=== PATIENT | female | born 1990 | race Hispanic/Latino ===

== ENCOUNTER 2019-09-27 11:24 | Inpatient (IN) | payer BC ==
[2019-10-02] MEDS ORDERED: Bupivacaine 0.25% HCL 30 ML VIAL ONE (09:05)
[2019-10-02] MEDS ORDERED: Bupivacaine PF 0.5% 30 ML VIAL ONE (09:05)
[2019-10-02] MEDS ORDERED: HYDROcodone/Acetaminophen 5/325 mg Tablet PO PRN ×2 (20:09)
[2019-10-02] MEDS ORDERED: Ondansetron PF 4 MG/2 ML Vial IVP PRN (20:09)
[2019-10-02] MEDS ORDERED: Ibuprofen 800 MG TAB PO PRN (20:09)
[2019-10-02] MEDS ORDERED: NS / Oxytocin 40 units/1000ml 1,000 ML IV PRN (20:09)
[2019-10-02] MEDS ORDERED: Butorphanol Tartrate 1 MG/ML VIAL SLOW IVP PRN (20:09)
[2019-10-02] MEDS ORDERED: Lidocaine 1% (PF) 30 ML VIAL SC PRN (20:09)
[2019-10-02] MEDS ORDERED: Promethazine HCl 25 MG/ML VIAL IM PRN (20:09)
[2019-10-02] MEDS ORDERED: hydrALAZINE 20 MG/ML VIAL SLOW IVP PRN (20:09)
[2019-10-02] MEDS ORDERED: NS w/ Oxytocin 10 units 500 ML IV SCH ×2 (20:15)
[2019-10-02 21:19] VITALS: BMI 33.8
[2019-10-02 21:44] LABS: Mean Corpuscular HGB CONC 35.1 g/dL (32.0-36.0); Mean Corpuscular Hemoglobin 31.5 pg (27.0-31.0); Mean Corpuscular Volume 89.7 fL (78.0-98.0); Mean Platelet Volume 9.7 fL (7.4-10.4); Platelet Count 155 thou/uL (130-400); RBC Distribution Width 12.3 % (11.5-14.5); Red Blood Cell (RBC) Count 4.13 mill/uL (4.20-5.40); White Blood Cell (WBC) Count 8.4 thou/uL (4.8-10.8)
[2019-10-02] MEDS: Lactated Ringer's 1,000 ML IV SCH (21:45)
[2019-10-02] MEDS: Misoprostol 100 MCG TAB VAG SCH (21:59)
[2019-10-02 22:24] LABS: HBSAg Index 0.29 S/CO (0-0.99); Hep B Surf Ag Non-Reactive S/CO (NonReactive)
[2019-10-02 22:31] LABS: Syphilis Antibody Nonreactive (Nonreactive); Syphilis Antibody Index 0.06 S/CO (<1.00 Non-Reactive)
[2019-10-03] MEDS: Lactated Ringer's 1,000 ML IV SCH ×2 (04:00→08:03)
[2019-10-03] MEDS: Misoprostol 100 MCG TAB VAG SCH ×3 (06:04→18:24)
[2019-10-03] MEDS ORDERED: Fentanyl 4 mcg/Bup 0.1% Cadd 100 ML ONE (09:48)
[2019-10-03] MEDS ORDERED: Ondansetron PF 4 MG/2 ML Vial IVP PRN ×3 (10:45→19:55)
[2019-10-03] MEDS ORDERED: Promethazine HCl 25 MG/ML VIAL IM PRN ×2 (10:45→18:11)
[2019-10-03] MEDS ORDERED: Acetaminophen 325 MG TAB PO PRN ×2 (10:45→19:55)
[2019-10-03] MEDS ORDERED: Naloxone HCl 0.4 mg/ml Vial IVP PRN ×4 (10:45→18:11)
[2019-10-03] MEDS ORDERED: Communication Order-Pharmacy FS SCH ×2 (10:45→18:15)
[2019-10-03] MEDS ORDERED: Lactated Ringer's 500 ML IV PRN (10:45)
[2019-10-03] MEDS ORDERED: diphenhydrAMINE 50 MG/ML VIAL IVP PRN ×2 (10:45→18:11)
[2019-10-03] MEDS ORDERED: EPHEDRINE 25 MG/5 ML SYRINGE SLOW IVP PRN (10:45)
[2019-10-03] MEDS ORDERED: Fentanyl 4 mcg/Bupivacaine 0.1% Cassette 100 ML EPIDURAL SCH (10:45)
[2019-10-03] MEDS ORDERED: MORPHINE 5 MG/10 ML PF VIAL ONE (16:36)
[2019-10-03] MEDS ORDERED: Fentanyl 100 MCG/2 ML VIAL ONE (16:36)
[2019-10-03] MEDS ORDERED: EPHEDRINE 25 MG/5 ML SYRINGE ONE (16:37)
[2019-10-03] MEDS ORDERED: PHENYLEPHRINE-NS 100 MCG/ML 10 ML SYRINGE ONE (16:37)
[2019-10-03] MEDS ORDERED: Dexamethasone 4 mg/ml Vial ONE (16:37)
[2019-10-03] MEDS ORDERED: Ketorolac Tromethamine 30 MG/ML VIAL ONE (16:37)
[2019-10-03] MEDS ORDERED: Oxytocin 10 UNITS/ML VIAL ONE ×2 (16:37→17:25)
[2019-10-03] MEDS ORDERED: Dextrose 5%-Lactated Ringers 1,000 ML IV SCH (16:45)
[2019-10-03] MEDS ORDERED: Azithromycin 500 MG VIAL ONE (16:46)
[2019-10-03] MEDS ORDERED: CEFAZOLIN 1 GM VIAL ONE (16:48)
[2019-10-03] MEDS ORDERED: Ondansetron PF 4 MG/2 ML Vial ONE (16:50)
--- NOTE | 2019-10-03 16:51 | PDOC.LDPN ---
Labor & Delivery Progress Note - Subjective Subjective: no concerns - Objective Vital signs reviewed and normal: yes General: resting - Assessment (1) Non-reassuring heart rate or rhythm affecting mother Code(s): O36.8390 - MATERN CARE FOR ABNLT FETL HRT RATE OR RHYM, UNSP TRI, UNSP Current Visit: Yes Status: Acute Plan: other -: Pitocin off x 2 for recurrent late decelerations and minimal variability, remote from delivery. Discussed indication for CS.
[2019-10-03] MEDS ORDERED: CEFAZOLIN 2 GM in Premix Bag 1 BAG IVPB SCH (17:00)
[2019-10-03] MEDS ORDERED: Azithromycin 500 MG in Sodium Chloride 0.9% 250 ML 250 ML IVPB SCH (17:00)
--- NOTE | 2019-10-03 17:25 | PDOC.OPDEL ---
OB Operative/Delivery Note Delivery Dr/Surgeon: kaitlin Assist: atul Pre-Delivery Diagnosis: medically indicated induction (prolonged preg) Procedure/Post Delivery Dx: primary low transverse CS (for NRFHT @ 4cm) Weeks gestation: 40 Anesthesia: epidural - Findings A Sex: female - Additional Findings/Plan Placenta delivered: manual removal findings: low transverse hysterotomy without extension, normal uterus, normal tubes, normal ovaries Estimated blood loss: 600ml Post delivery plan: routine recovery
[2019-10-03] MEDS ORDERED: Naloxone HCl 0.4 mg/ml Vial IV PRN (18:11)
[2019-10-03] MEDS ORDERED: L&D-Morphine 4 MG/ML VIAL SLOW IVP PRN (18:11)
[2019-10-03] MEDS ORDERED: Ondansetron HCl/PF 4 MG/2 ML Vial IVP PRN (18:11)
[2019-10-03] MEDS ORDERED: Promethazine HCl 25 MG SUPP PR PRN (18:11)
[2019-10-03] MEDS ORDERED: HYDROmorphone 2 MG/ML VIAL SLOW IVP PRN (18:11)
[2019-10-03] MEDS ORDERED: Meperidine HCl/PF 25 MG/ML VIAL SLOW IVP PRN (18:11)
[2019-10-03] MEDS ORDERED: Ketorolac Tromethamine 30 MG/ML VIAL IVP PRN (18:11)
[2019-10-03] MEDS ORDERED: Ketorolac Tromethamine 30 MG/ML VIAL IVP SCH (18:15)
[2019-10-03] MEDS ORDERED: Bisacodyl 10 MG SUPP PR PRN (19:55)
[2019-10-03] MEDS ORDERED: Lanolin Ointment 7 GM TUBE TOP PRN (19:55)
[2019-10-03] MEDS ORDERED: diphenhydrAMINE 25 MG CAP PO PRN (19:55)
[2019-10-03] MEDS ORDERED: hydrALAZINE 20 MG/ML VIAL SLOW IVP PRN (19:55)
--- NOTE | 2019-10-03 20:22 | OP ---
DATE OF PROCEDURE: 10/03/2019 PREOPERATIVE DIAGNOSES: 1. Induction of labor at four weeks for prolonged . 2. Nonreassuring heart tones remote from delivery. PROCEDURE PERFORMED: Primary low transverse section. [employer] DRIVER: Shyanne Watts MD COMPLICATIONS: None. EBL: 600 mL. ANESTHESIA: Epidural. FINDINGS: 1. Low-transverse hysterotomy without extension. 2. Normal uterus, tubes, and ovaries bilaterally. 3. Vigorous , Apgars and weight pending at the time of this dictation. 4. Surgical site hemostatic. 5. Placenta delivered. DESCRIPTION OF PROCEDURE: The patient was taken back to the OR with IV fluids running and a Ferreira catheter and epidural catheter that were previously placed. She received Ancef 2 g prior to the start of her section and azithromycin 500 mg as well. The patient was prepped and draped in normal fashion for section. The surgeons were gowned and gloved. Anesthesia was tested and found to be adequate. A Pfannenstiel skin incision was made with a scalpel. The skin incision was carried down through the subcutaneous tissue to the fascia. Once the fascia was reached, it was incised in the midline and extended superolaterally using curved Figueroa scissors. Sunita clamps were placed at the superior border of the fascia, which was sharply and bluntly dissected off the rectus abdominis muscles in cephalad and caudad direction. In similar fashion, Sunita clamps were placed at the inferior border of the fascia, which was dissected down towards the level of the pubic symphysis. The rectus muscles were bluntly in the midline. The peritoneum was entered and stretched. The Charles O retractor was placed into the peritoneal cavity for retraction, visualization, and protection of the wound. A bladder flap was created and the bladder was dissected away from the planned hysterotomy site. A low-transverse hysterotomy was made with a scalpel. The hysterotomy was bluntly entered and stretched using the Das maneuver. Clear fluid was noted. The infant was delivered vertex through the hysterotomy without difficulty. Followed by the shoulders and body. Nose and mouth were suctioned. The cord was doubly clamped and cut, and the was handed off to special care nurse in attendance. Cord blood was collected. The placenta was delivered. The uterus was exteriorized, massaged firm, and cleared of clot and debris. Uterus was returned to the abdominal cavity. Hysterotomy was closed using 4-0 Monocryl in a running lock stitch. After the hysterotomy was closed, it was inspected and no areas of bleeding were noted. Hysterotomy was irrigated as well as the paracolic gutters were suctioned dry. Hysterotomy was inspected again and no bleeding was noted. The fundus was noted to be firm. The Charles O retractor was removed from the abdominal cavity. The rectus fascia and muscles were inspected with no bleeding noted. The rectus fascia was reapproximated with PDS suture from corner to corner in a running stitch. Subcutaneous tissue was then irrigated and dried. Any small areas of bleeding were controlled with Bovie cauterization. The subcutaneous tissue was reapproximated with plain gut suture. Subcuticular layer was reapproximated with 4-0 Monocryl and dressed with Dermabond dressing. The patient tolerated the procedure well and there were no complications. Job ID: [id number]
[2019-10-03] MEDS: Docusate Calcium (SURFAK) 240 MG CAP PO SCH (21:00)
[2019-10-03] MEDS: Ferrous Sulfate 325 MG TAB PO SCH (21:00)
[2019-10-04] MEDS: Lactated Ringer's 1,000 ML IV SCH (00:47)
[2019-10-04 05:30] LABS: Hemoglobin 12.3 g/dL (12.0-16.0); Mean Corpuscular HGB CONC 34.8 g/dL (32.0-36.0); Mean Corpuscular Hemoglobin 31.3 pg (27.0-31.0); Mean Platelet Volume 9.6 fL (7.4-10.4); Platelet Count 151 thou/uL (130-400); RBC Distribution Width 12.1 % (11.5-14.5); Red Blood Cell (RBC) Count 3.93 mill/uL (4.20-5.40); White Blood Cell (WBC) Count 13.1 thou/uL (4.8-10.8)
[2019-10-04] MEDS ORDERED: HYDROcodone/Acetaminophen 5/325 mg Tablet PO PRN ×2 (06:15)
[2019-10-04] MEDS: Ferrous Sulfate 325 MG TAB PO SCH ×2 (07:43→21:59)
[2019-10-04] MEDS: Misoprostol 100 MCG TAB VAG SCH (07:53)
--- NOTE | 2019-10-04 08:12 | PDOC.PP ---
Post Progress Note Post Day #: 1 Subjective: Pt doing well on ppd1. Pain controlled. Minimal lochia. Baby is breast feeding with good latch. Plan for discontinuing beltre this am. Pt is eating and drinking well. No CP, SOB or leg swelling. PO intake tolerated: yes Flatus: yes Vital Signs (12 hours) Temp Pulse Resp BP Pulse Ox 10/04/19 07:35 98.7 F 82 20 98/51 L 96 10/04/19 04:00 98.1 F 80 16 100/54 L 98 10/04/19 00:00 98.6 F 67 16 99/55 L 98 10/03/19 22:05 98.6 F 69 16 121/70 98 10/03/19 21:05 98 F 67 16 100/71 96 Weight Weight 191 lb - Physical Examination General: NAD Respiratory: non-labored breathing Abdominal: + bowel sounds, lochia, no distention, appropriately TTP Fundus firm & at: 1 cm below umbilicus Extremities: negative homans (B) Skin: CS incision dry & intact, no rash Neurological: no gross focal deficits Psychiatric: A&Ox3, normal affect Result Diagrams: 10/04/19 05:12 Additional Labs: Post Labs Blood Type O POSITIVE 10/02/19 21:55 Hep Bs Antigen Non-Reactive S/CO (NonReactive) 10/02/19 21:31 - Assessment/Plan Pt doing well on PPD1 s/p Cesarian section. VSS, Afebrile. Pain well controlled. H&H are stable. Infant is Breast feeding well at this time. Plan to d/c beltre this am and voiding trial. Continue routine care at this time.
[2019-10-04] MEDS: Prenatal Vitamin 1 TAB PO SCH (08:39)
[2019-10-04] MEDS: Docusate Calcium (SURFAK) 240 MG CAP PO SCH ×2 (08:40→21:59)
[2019-10-04] MEDS: Simethicone Chewable 80 MG TAB PO PRN (08:40)
--- NOTE | 2019-10-04 08:45 | OP ---
DATE OF PROCEDURE: 10/03/2019 ADDENDUM: I was present and scrubbed to assist the uncomplicated primary low-transverse with Dr. Matt Urena. Please see her note for full details. Job ID: [id number]
[2019-10-04] MEDS ORDERED: Adacel (T-DAP) 0.5 ML SYRINGE IM ONE (09:00)
[2019-10-04] MEDS: Ibuprofen 800 MG TAB PO SCH ×2 (13:56→21:59)
[2019-10-05] MEDS: Ibuprofen 800 MG TAB PO SCH (05:47)
[2019-10-05 06:01] VITALS: TEMP 98.2
[2019-10-05 07:47] VITALS: BP 118/68
--- NOTE | 2019-10-05 08:48 | PDOC.PP ---
Post Progress Note Post Day #: 2 Subjective: nursing well, minimal pain, post op goals met PO intake tolerated: yes Flatus: yes Ambulation: yes Vital Signs (12 hours) Temp Pulse Resp BP BP Pulse Ox 10/05/19 07:46 98.2 F 63 20 118/68 10/05/19 05:44 98.2 F 57 L 14 105/66 97 10/05/19 00:56 97.8 F 65 14 110/58 L 98 Weight Weight 191 lb - Physical Examination General: NAD Respiratory: non-labored breathing Skin: CS incision dry & intact Neurological: no gross focal deficits Psychiatric: A&Ox3, normal affect Result Diagrams: 10/04/19 05:12 Additional Labs: Post Labs Blood Type O POSITIVE 10/02/19 21:55 Hep Bs Antigen Non-Reactive S/CO (NonReactive) 10/02/19 21:31 (1) Non-reassuring heart rate or rhythm affecting mother Code(s): O36.8390 - MATERN CARE FOR ABNLT FETL HRT RATE OR RHYM, UNSP TRI, UNSP Status: Acute - Assessment/Plan POD2 sp 1CS for NRFHT, doing well, plan for DC today at pt request.
[2019-10-05] MEDS: Docusate Calcium (SURFAK) 240 MG CAP PO SCH (09:21)
[2019-10-05] MEDS: Simethicone Chewable 80 MG TAB PO PRN (09:21)
[2019-10-05] MEDS: Prenatal Vitamin 1 TAB PO SCH (09:21)
[2019-10-05] MEDS: Ferrous Sulfate 325 MG TAB PO SCH (09:22)
== END 2019-10-05 13:05 | disposition home or self-care (01) | DRG 788 ==
LOC: EDSTATUS 17:03 → L&D 10-02 19:27 → 3SW 10-03 20:16
PROVIDERS: ADMIT Obstetrics & Gynecology; ATTEND Obstetrics & Gynecology
PROC: 3E0P7VZ Introduction of Hormone into Female Reproductive, Via Natural or Artificial Opening (ICD-10-PCS; 2019-10-02)
PROC: 10D00Z1 Extraction of Products of Conception, Low, Open Approach (ICD-10-PCS; principal; 2019-10-03)
DX: O48.1 Prolonged pregnancy (principal); O76 Abnormality in fetal heart rate and rhythm complicating labor and delivery; Z3A.40 40 weeks gestation of pregnancy; Z37.0 Single live birth
CPT/HCPCS: 36415; 51702; 85027; 86780; 86850; 86900; 86901; 87340; J0456; J0595; J0690; J1100; J1885; J2274; J2405; J2550; J2590; J3010; S0020